=== PATIENT | male | born 1990 | race African-American/Black ===

== ENCOUNTER 2017-03-05 20:00 | Emergency (ER) | payer SELFPAY | END 2017-03-05 20:10 | disposition home or self-care (01) | LOC: ER 20:00 | PROC: 2W3EX1Z Immobilization of Right Hand using Splint (ICD-10-PCS; principal; 2017-03-05) | DX: S60.221A Contusion of right hand, initial encounter (principal); S69.91XA Unspecified injury of right wrist, hand and finger(s), initial encounter; F17.200 Nicotine dependence, unspecified, uncomplicated; X58.XXXA Exposure to other specified factors, initial encounter | CPT/HCPCS: 73130-RT; 99283 ==